=== PATIENT | male | born 1980 | race African-American/Black ===

== ENCOUNTER 2020-02-16 17:07 | Emergency (ER) | payer MEDICAID ==
[~2020-02-16] VITALS: Ht 172.7 cm; Wt 83.5 kg
[~2020-02-16 17:07] MED LIST: ORE25 PO
[2020-02-16 17:12] VITALS: BP 161/82
[2020-02-16 18:04] LABS: APPEARANCE,URINE CLEAR (CLEAR); BILIRUBIN,URINE NEGATIVE (NEGATIVE); BLOOD, URINE NEGATIVE (NEGATIVE); COLOR,URINE YELLOW (YELLOW); LEUKOCYTE ESTERASE ,URINE NEGATIVE (NEGATIVE); NITRITE, URINE NEGATIVE (NEGATIVE); PH,URINE 7.5 (5.0-9.0); UGLUCOSE NEGATIVE (NEGATIVE)
[2020-02-16 18:34] VITALS: BP 161/82
== END 2020-02-16 18:33 | disposition home or self-care (01) ==
LOC: MED 17:07
DX: N50.812 Left testicular pain (principal); N50.3 Cyst of epididymis; I10 Essential (primary) hypertension; Z79.899 Other long term (current) drug therapy; Z98.52 Vasectomy status
CPT/HCPCS: 76870; 81003; 99284; Q0092

== ENCOUNTER 2020-07-29 15:09 | Emergency (ER) | payer MEDICAID ==
[~2020-07-29] VITALS: Ht 177.8 cm; Wt 77.1 kg
[~2020-07-29 15:09] MED LIST changes: +HYDR-4004 PO; -ORE25 PO
[2020-07-29 15:14] VITALS: BP 125/68
[2020-07-29] MEDS ORDERED: KETOROLAC 30 MG/ML VIAL IM ONE (15:35)
[2020-07-29] MEDS ORDERED: HYDR25TA32 PO (15:43)
[2020-07-29] MEDS ORDERED: BENA10TA81 PO (15:43)
[2020-07-29] MEDS ORDERED: IBUPROFEN 600 MG TAB PO ONE (15:45)
[2020-07-29 15:56] VITALS: BP 125/68
== END 2020-07-29 15:55 | disposition home or self-care (01) ==
LOC: MED 15:09
DX: R51.9 Headache, unspecified (principal); I10 Essential (primary) hypertension; Z79.899 Other long term (current) drug therapy
CPT/HCPCS: 99282; J1885